=== PATIENT | female | born 1960 | race Caucasian/White ===

== ENCOUNTER 2017-04-19 14:14 | Emergency (ER) | payer MEDICARE ==
[~2017-04-19] VITALS: Ht 157.5 cm; Wt 56.7 kg
--- NOTE | 2017-04-19 15:08 | EKG ---
[facility] [address] [place] [address] Test Date: 2017-04-19 Test Time: 14:23:43 Pat Name: JOHNATHAN MONTES Department: Room: Gender: F [employer]: : 1960 Requested By: SUNNI BALL Order Number: [id number] Reading MD: Measurements Intervals [place] Rate: 98 P: 40 RI: 134 QRS: -16 QRSD: 84 T: 30 QT: 340 QTc: 436 Interpretive Statements SINUS RHYTHM LEFTWARD AXIS NO SPECIFIC ECG ABNORMALITIES RI6.01 No previous ECG available for comparison
[2017-04-19 15:17] LABS: BASO # 0.1 x10^3/uL (0.0-0.2); BASO % 1 % (0-3); EOS % 1 % (0-3); HEMATOCRIT 38.4 % (36.0-47.0); HEMOGLOBIN 12.5 g/dL (12.0-15.5); LYMPH # 1.8 x10^3/uL (1.0-4.8); LYMPH % 23 % (24-48); MEAN CORPUSCULAR HEMOGLOBIN 29 pg (25-35); MEAN CORPUSCULAR HGB CONC 32 g/dL (31-37); MEAN CORPUSCULAR VOLUME 89 fL (79-100); MONO % 12 % (0-9); NEUT % 64 % (31-73); PLATELET COUNT 308 x10^3/uL (140-400); RED BLOOD COUNT 4.31 x10^6/uL (3.50-5.40); RED CELL DISTRIBUTION WIDTH 14.9 % (11.5-14.5); WHITE BLOOD COUNT 8.1 x10^3/uL (4.0-11.0)
--- NOTE | 2017-04-19 15:23 | RAD ---
Indication: Chest pain for 2 hours. Technique: Upright portable chest radiograph was obtained. No comparison is available. Findings: The lungs are clear. The cardiopulmonary silhouette is within normal limits. The bony structures are intact. Leads overlie the patient. Impression: No active pulmonary disease.
[2017-04-19 15:24] LABS: INR 0.9 (0.8-1.1); PROTHROMBIN TIME PATIENT 11.1 SEC (11.7-14.0)
[2017-04-19 15:25] LABS: BILIRUBIN,URINE NEGATIVE (NEG); GLUCOSE,URINE >=1000 mg/dL (NEG); NITRITE,URINE NEGATIVE (NEG); PROTEIN,URINE NEGATIVE (NEG-TRACE); UROBILINOGEN,URINE 0.2 mg/dL (0.2 mg/dL)
[2017-04-19 15:28] LABS: ALBUMIN 4.1 g/dL (3.4-5.0); CALCIUM 9.7 mg/dL (8.5-10.1); GFR 57.6; TOTAL BILIRUBIN 0.3 mg/dL (0.2-1.0); TOTAL PROTEIN 8.3 g/dL (6.4-8.2)
[2017-04-19 15:30] LABS: POTASSIUM 2.8 mmol/L (3.5-5.1)
[2017-04-19] MEDS ORDERED: ASPIRIN CHEWABLE 81 MG TABLET. PO ONE (15:30)
[2017-04-19 15:39] LABS: BACTERIA,URINE 0 /HPF (0-FEW); SQUAMOUS EPITHELIAL CELL,UR FEW /LPF; WBC,URINE TNTC /HPF (0-4)
[2017-04-19] MEDS ORDERED: POTASSIUM CHLORIDE 20MEQ 50 ML IV SCH (15:45)
[2017-04-19] MEDS ORDERED: POTASSIUM CHLORIDE 20 MEQ TABLET.ER. PO ONE (16:15)
--- NOTE | 2017-04-19 16:44 | PHYS DOC ---
Past Medical History Past Medical History: Diabetes-Type II, Fibromyalgia, Hypertension, Other Additional Past Medical Histor: dysautonomia Past Surgical History: Appendectomy, Cholecystectomy, Knee Replacement, Other Additional Past Surgical Histo: bilat feet, oral sx Alcohol Use: Heavy Drug Use: None Adult General Chief Complaint Chief Complaint: CHEST PAIN HPI HPI Patient is a 57 year old F who presents with chest pain for the past 2 hours. Patient has no previous history of NH or stents or bypass surgery however does have a history of diabetes hypertension and hyperlipidemia. Patient is a heavy smoker. Patient states the chest pain is central nonradiating. Patient states she was just sitting down when the pain came on. Patient states nothing increases or decreases the pain. Patient has no previous history of DVTs or PEs. Patient denies any fevers or shortness of breath. Patient has no nausea/ vomiting/diarrhea. Review of Systems Review of Systems GEN: Denies fevers, chills, sweats HEENT: Denies blurred vision, sore throat CV: Chest pain RESP: Denies shortness of air, cough GI: Denies n/v/d NEURO: Denies confusion, dizziness MSK: Denies weakness, joint pain/swelling All other systems were reviewed and found to be within normal limits, except as documented in this note. Current Medications Current Medications Current Medications Medications (Trade) Dose Ordered Sig/Maribel Start Time Stop Time Status Last Admin Dose Admin Aspirin (Children'S Aspirin) 324 mg 1X ONCE 04/19/17 15:30 04/19/17 15:31 DC 04/19/17 16:21 324 MG Potassium Chloride 10 meq/ Sodium Chloride 105 ml @ 105 mls/hr Q1H 04/19/17 17:30 04/19/17 19:29 Potassium Chloride (Klor-Con) 40 meq 1X ONCE 04/19/17 16:15 04/19/17 16:16 DC 04/19/17 16:21 40 MEQ Allergies Allergies Allergies Coded Allergies Type Severity Reaction Last Updated Verified fentanyl Adverse Reaction Intermediate nausea 04/19/17 Yes Physical Exam Physical Exam GEN.: No apparent distress. Alert and oriented. HEENT: Head is normocephalic, atraumatic NECK: Supple. LUNGS: CTAB. HEART: RRR, S1, S2 present. Peripheral pulses intact ABDOMEN: Soft, nontender. Positive bowel sounds. EXTREMITIES: Without any cyanosis. NEUROLOGIC: Normal speech, normal tone PSYCHIATRIC: Normal affect, normal mood. SKIN: No ulcerations Current Patient Data Vital Signs Vital Signs Date Time Temp Pulse Resp B/P (MAP) Pulse Ox O2 Delivery O2 Flow Rate FiO2 04/19/17 14:30 98.3 97 20 145/80 (101) 97 Room Air 98.3 Lab Values Laboratory Tests Test 04/19/17 14:30 04/19/17 15:00 White Blood Count 8.1 x10^3/uL (4.0-11.0) Red Blood Count 4.31 x10^6/uL (3.50-5.40) Hemoglobin 12.5 g/dL (12.0-15.5) Hematocrit 38.4 % (36.0-47.0) Mean Corpuscular Volume 89 fL (79-100) Mean Corpuscular Hemoglobin 29 pg (25-35) Mean Corpuscular Hemoglobin Concent 32 g/dL (31-37) Red Cell Distribution Width 14.9 % (11.5-14.5) H Platelet Count 308 x10^3/uL (140-400) Neutrophils (%) (Auto) 64 % (31-73) Lymphocytes (%) (Auto) 23 % (24-48) L Monocytes (%) (Auto) 12 % (0-9) H Eosinophils (%) (Auto) 1 % (0-3) Basophils (%) (Auto) 1 % (0-3) Neutrophils # (Auto) 5.2 x10^3uL (1.8-7.7) Lymphocytes # (Auto) 1.8 x10^3/uL (1.0-4.8) Monocytes # (Auto) 0.9 x10^3/uL (0.0-1.1) Eosinophils # (Auto) 0.0 x10^3/uL (0.0-0.7) Basophils # (Auto) 0.1 x10^3/uL (0.0-0.2) Prothrombin Time 11.1 SEC (11.7-14.0) L Prothrombin Time INR 0.9 (0.8-1.1) Sodium Level 121 mmol/L (136-145) L Potassium Level 2.8 mmol/L (3.5-5.1) *L Chloride Level 80 mmol/L (98-107) L Carbon Dioxide Level 29 mmol/L (21-32) Anion Gap 12 (6-14) Blood Urea Nitrogen 6 mg/dL (7-20) L Creatinine 1.0 mg/dL (0.6-1.0) Estimated GFR (Cockcroft-Gault) 57.6 BUN/Creatinine Ratio 6 (6-20) Glucose Level 366 mg/dL (70-99) H Calcium Level 9.7 mg/dL (8.5-10.1) Total Bilirubin 0.3 mg/dL (0.2-1.0) Aspartate Amino Transferase (AST) 19 U/L (15-37) Alanine Aminotransferase (ALT) 26 U/L (14-59) Alkaline Phosphatase 105 U/L (46-116) Troponin I Quantitative < 0.017 ng/mL (0.000-0.055) Total Protein 8.3 g/dL (6.4-8.2) H Albumin 4.1 g/dL (3.4-5.0) Albumin/Globulin Ratio 1.0 (1.0-1.7) Urine Collection Type Unknown Urine Color Yellow Urine Clarity Clear Urine pH 7.0 Urine Specific [place] 1.025 Urine Protein Negative mg/dL (NEG-TRACE) Urine Glucose (UA) >=1000 mg/dL (NEG) Urine Ketones (Stick) 15 mg/dL (NEG) Urine Blood Trace (NEG) Urine Nitrite Negative (NEG) Urine Bilirubin Negative (NEG) Urine Urobilinogen Dipstick 0.2 mg/dL (0.2 mg/dL) Urine Leukocyte Esterase Moderate (NEG) Urine RBC 3-5 /HPF (0-2) Urine WBC Tntc /HPF (0-4) Urine Squamous Epithelial Cells Few /LPF Urine Bacteria 0 /HPF (0-FEW) Laboratory Tests 04/19/17 14:30 Laboratory Tests 04/19/17 14:30 EKG EKG 1423: EKG shows normal sinus rhythm rate of 98 no STEMI[] Radiology/Procedures Radiology/Procedures Chest x-ray NAD[] Course & Med Decision Making Course & Med Decision Making Pertinent Labs and Imaging studies reviewed. (See chart for details) ED course: Patient was seen and examined emergency room cardiac workup was ordered Lab reports the patient's potassium is 2.8 therefore 20 mEq of potassium IV and 40 mg potassium by mouth were ordered Patient was updated on plan to be admitted Discussed CC/HP/PMH with Dr. 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 After having a long discussion with them about my concerns for the chest pain and hypokalemia and strongly recommended patient be admitted the hospital. They understand all risks including and disability and like to leave AGAINST MEDICAL ADVICE and drive home to [place] to follow- up with her doctor there. I will send the patient home with some potassium supplement pills and some glipizide since she is out of her diabetes medication. [] [] Dragon Disclaimer Dragon Disclaimer This electronic medical record was generated, in whole or in part, using a voice recognition dictation system. Departure Departure Impression: Primary Impression: Chest pain Additional Impression: Hypokalemia Disposition: AGAINST MEDICAL ADVICE Admitting Physician: Other (Dr. Da Silva) Condition: STABLE Referrals: NO PCP (PCP) Patient Instructions: Chest Pain (Nonspecific), Hypokalemia Additional Instructions: Please follow-up with your family physician once she arrived in [place] for recheck on her potassium level and reevaluation your chest pain Scripts Glipizide (GLIPIZIDE) 5 Mg Tablet 1 TAB PO BID for 30 Days, #60 TAB 3 Refills Prov: SUNNI BALL DO 04/19/17 Potassium Chloride (POTASSIUM CHLORIDE) 20 Meq Tablet.er 20 MEQ PO DAILY for 5 Days, #5 TAB.SR Prov: SUNNI BALL DO 04/19/17 Problem Qualifiers SUNNI BALL DO Apr 19, 2017 16:44
[2017-04-19] MEDS ORDERED: POTASSIUM CHLORIDE 10 MEQ in IV NORMAL SALINE 100ML 100 ML IV SCH (17:30)
[2017-04-19] MEDS ORDERED: POTA20TA82 PO (18:13)
[2017-04-19] MEDS ORDERED: GLIP5TAB10 PO (18:13)
[2017-04-19 18:30] VITALS: BP 107/71
== END 2017-04-19 19:02 | disposition home or self-care (01) ==
LOC: ER 14:14
DX: R07.89 Other chest pain (principal); E87.6 Hypokalemia; E11.9 Type 2 diabetes mellitus without complications; M79.7 Fibromyalgia; I10 Essential (primary) hypertension; E78.5 Hyperlipidemia, unspecified; F10.20 Alcohol dependence, uncomplicated; F17.200 Nicotine dependence, unspecified, uncomplicated; Z88.4 Allergy status to anesthetic agent; Z90.49 Acquired absence of other specified parts of digestive tract; Z96.659 Presence of unspecified artificial knee joint
CPT/HCPCS: 36415; 71010; 80053; 81001; 84484; 85025; 85610; 87086; 93005; 99285-25